=== PATIENT | female | born 1975 | race Caucasian/White ===

== ENCOUNTER → 2017-10-06 | Outpatient (CLI) | payer BC ==
--- NOTE | 2017-10-07 17:03 | WOMENS IMAGING REPORT ---
EXAM DESCRIPTION: BILAT SCREENING MAMMO W/CAD COMPLETED DATE/TIME: 10/06/2017 1:20 pm REASON FOR STUDY: SCREENING MAMMO Z12.31 ENCNTR SCREEN MAMMOGRAM FOR MALIGNANT NEOPLASM OF CHRIS COMPARISON: None. TECHNIQUE: Standard craniocaudal and mediolateral oblique views of each breast recorded using digita l acquisition. LIMITATIONS: Films greater than the 10 years old, not available FINDINGS: RIGHT BREAST MASSES: On the right side, at the 9 o'clock and 11 o'clock position, about 5 cm from the nipple there are 2 low-density well-circumscribed mammographic nodules without calcification or architectural dis tortion. These require further investigation with 90 mediolateral view, cone compression views, and ultrasound. CALCIFICATIONS: No new or suspicious calcifications. ARCHITECTURAL DISTORTION: None. DEVELOPING DENSITY: None. ASYMMETRY: None noted. OTHER: No other significant findings. LEFT BREAST MASSES: On the left side, in the far medial left breast 12 cm from the nipple 3 o'clock position low- density mammographic nodule is present without calcifications are tacks distortion. This requires fu rther investigation with cone compression views 90 mediolateral view and ultrasound. There is a 2nd , smaller mammographic nodule 5 cm from the nipple in the lower inner quadrant without calcification or architectural distortion. This requires further investigation with cone compression views and ult rasound CALCIFICATIONS: No new or suspicious calcifications. ARCHITECTURAL DISTORTION: None. DEVELOPING DENSITY: None. ASYMMETRY: None noted. OTHER: No other significant findings. Read with the assistance of CAD. .[facility] - R2 Cenova Version 1.3 .[facility] Imaging - R2 Cenova Version 1.3 .[facility] - R2 Cenova Version 2.4 .[facility] [place] - R2 Cenova Version 2.4 .[facility] - R2 Glass Bender Version 9.2 IMPRESSION: Bilateral breast nodules for which additional diagnostic mammograms and ultrasound are r ecommended for followup BREAST DENSITY: b. There are scattered areas of fibroglandular density. BIRAD: 0 Incomplete: Needs Additional Imaging Evaluation and/or prior Mammograms for Comparison. RECOMMENDATION: RECOMMENDED FOLLOW-UP: Bilateral diagnostic mammograms and breast ultrasound The patient will be contacted for additional imaging. COMMENT: The patient has been notified of the results by letter per MQSA requirements. Additional no tification policies are in place for contacting patient with suspicious or incomplete findings. Quality ID #[id number]: The [employer] recommends an annual screening mammogram for women aged 40 years or over. This facility utilizes a reminder system to ensure that all patients receive reminder letters, and/or direct phone calls for appointments. This includes reminders for routine scr eening mammograms, diagnostic mammograms, or other Breast Imaging Interventions when appropriate. Th is patient will be placed in the appropriate reminder system. The [employer] (ACR) has developed recommendations for screening MRI of the breast s in certain patient populations, to be used in conjunction with mammography. Breast MRI surveillanc e may be appropriate for women with more than 20% lifetime risk of developing breast cancer as deter mined by genetic testing, significant family history of the disease, or history of mantle radiation f or Hodgkins Disease. ACR Practice Guidelines 2008. TECHNICAL DOCUMENTATION: FINDING NUMBER: (1) ASSESSMENT: (1) JOB ID: [id number] [employer]- All Rights Reserved
== END ==
LOC: WI 12:36
PROVIDERS: ATTEND Internal Medicine Geriatric Medicine
DX: Z12.31 Encounter for screening mammogram for malignant neoplasm of breast (principal); N63.24 Unspecified lump in the left breast, lower inner quadrant; N63.10 Unspecified lump in the right breast, unspecified quadrant
CPT/HCPCS: 77067; G0202

== ENCOUNTER → 2017-10-25 | Outpatient (CLI) | payer BC ==
--- NOTE | 2017-10-25 13:07 | WOMENS IMAGING REPORT ---
EXAM DESCRIPTION: BILAT DIAGNOSTIC MAMMO W/CAD; U/S BREAST UNILAT LIMITED COMPLETED DATE/TIME: 10/25/2017 9:48 am; 10/25/2017 10:38 am REASON FOR STUDY: UNSPECIFIED LUMP; N63.11 N63.24; BILATERAL U/S; N63.11; N63.24 N63.24 UNSPECIFIED LUMP IN THE LEFT BREAST, LOWER INNER QUAD N63.11 UNSPECIFIED LUMP IN THE RIGHT BREAST, UPPER OUTER HÉCTOR COMPARISON: 10/06/2017. TECHNIQUE: Additional true lateral and spot compression MLO and CC images of both breasts acquired. LIMITATIONS: None. FINDINGS: RIGHT BREAST MASSES: Masses in the upper-outer breast which are circumscribed with smooth margins. CALCIFICATIONS: No new or suspicious calcifications. ARCHITECTURAL DISTORTION: None. DEVELOPING DENSITY: None. ASYMMETRY: None noted. OTHER: No other significant findings. LEFT BREAST MASSES: Masses in the medial breast which are circumscribed with smooth margins. CALCIFICATIONS: No new or suspicious calcifications. ARCHITECTURAL DISTORTION: None. DEVELOPING DENSITY: None. ASYMMETRY: None noted. OTHER: No other significant findings. BREAST ULTRASOUND: TECHNIQUE: Static and dynamic grayscale images acquired of the right and left breast in the specific areas of clinical/mammographic concern. Selected color Doppler images recorded. ELASTOGRAPHY PERFORMED: No. LIMITATIONS: None. FINDINGS: MASS: In the right breast there is a 6 x 10 x 15 mm mass in the 10 o'clock location and a 5 x 12 mm m ass in the June 2010 o'clock location. In the left breast a there is a 5 x 9 x 11 mm mass in th e 10 o'clock location and a 5 x 8 mm mass in the 9 o'clock location. All of the masses in both breas ts are solid and well-circumscribed with smooth margins. Homogeneous echogenicity. Oriented paralle l to the skin. ELASTOGRAPHY CHARACTERISTICS: Not applicable. OTHER: No other significant finding. IMPRESSION: Well circumscribed masses in both breasts. Mammographic and sonographic appearance is m ost characteristic of fibroadenomas. No worrisome appearance. Since this is the patient's baseline study with no priors for comparison, would recommend a short-term interval followup to confirm stabil ity. BREAST DENSITY: b. There are scattered areas of fibroglandular density. BIRAD: 3 Probably benign finding. Initial short-interval follow-up suggested. RECOMMENDATION: RECOMMENDED FOLLOW UP: Birads 3: The patient will return in 6 months for follow-up silvia capone. SPECIFIC INTERVENTION/IMAGING/CONSULTATION RECOMMENDED:The patient will return for 6 month follow-up diagnostic mammography(tomosynthesis) and targeted breast ultrasound. COMMUNICATION:The imaging findings were not discussed with the patient. Her referring provider has be en notified of the findings. COMMENT: The patient has been notified of the results by letter per SA requirements. Additional no tification policies are in place for contacting patient with suspicious or incomplete findings. Quality ID #[id number]: The [employer] recommends an annual screening mammogram for women aged 40 years or over. This facility utilizes a reminder system to ensure that all patients receive reminder letters, and/or direct phone calls for appointments. This includes reminders for routine scr eening mammograms, diagnostic mammograms, or other Breast Imaging Interventions when appropriate. Th is patient will be placed in the appropriate reminder system. The [employer] (ACR) has developed recommendations for screening MRI of the breast s in certain patient populations, to be used in conjunction with mammography. Breast MRI surveillanc e may be appropriate for women with more than 20% lifetime risk of developing breast cancer as deter mined by genetic testing, significant family history of the disease, or history of mantle radiation f or Hodgkins Disease. ACR Practice Guidelines 2008. TECHNICAL DOCUMENTATION: FINDING NUMBER: (1) ASSESSMENT: (1) JOB ID: [id number] [employer]- All Rights Reserved
== END ==
LOC: WI 09:27
PROVIDERS: ATTEND Internal Medicine Geriatric Medicine
DX: N63.24 Unspecified lump in the left breast, lower inner quadrant (principal); N63.11 Unspecified lump in the right breast, upper outer quadrant
CPT/HCPCS: 76642; G0204; 77066

== ENCOUNTER → 2018-04-25 | Outpatient (CLI) | payer BC ==
--- NOTE | 2018-04-27 07:48 | WOMENS IMAGING REPORT ---
EXAM DESCRIPTION: BILAT DIAGNOSTIC MAMMO W/CAD; U/S BREAST UNILAT LIMITED COMPLETED DATE/TIME: 04/25/2018 8:18 am; 04/25/2018 9:03 am REASON FOR STUDY: INCONCLUSIVE FINDINGS ON DX; BILATERAL BREAST R92.8 R92.8 OTH ABN AND INCONCLUSIV E FINDINGS ON DX IMAGING OF CHRIS COMPARISON: Mammograms 10/06/2017, 10/25/2017 Breast ultrasound bilaterally 10/25/2017 TECHNIQUE: Standard craniocaudal and mediolateral oblique views of each breast recorded using digita l acquisition. Bilateral 90 mediolateral whole breast mammograms. Bilateral breast ultrasound was also performed LIMITATIONS: None. FINDINGS: RIGHT BREAST MASSES: 2 small mammographic nodules are present in the right breast upper outer quadrant unchanged CALCIFICATIONS: No new or suspicious calcifications. ARCHITECTURAL DISTORTION: None. DEVELOPING DENSITY: None. ASYMMETRY: None noted. OTHER: No other significant findings. LEFT BREAST MASSES: 2 nodules are present in the left breast upper inner quadrant, unchanged. CALCIFICATIONS: No new or suspicious calcifications. ARCHITECTURAL DISTORTION: None. DEVELOPING DENSITY: None. ASYMMETRY: None noted. OTHER: No other significant finding. Read with the assistance of CAD: .[facility] - R2 Cenova Version 1.3 .[facility] Imaging - R2 Cenova Version 1.3 .[facility] Imaging - R2 Cenova Version 2.4 .[facility] - R2 Cenova Version 2.4 .[facility] - R2 Lean Manager Version 9.2 Bilateral breast ultrasound: In the right breast upper outer quadrant, there are two nodules which are well-circumscribed and low- attenuation without worrisome acoustic absorption. These most likely represent small fibroadenomas a nd are stable compared to prior breast ultrasound exam on 10/25/2017. In the right breast 9 o'clock position, a 1.1 x 1.1 x 0.4 cm benign solid nodule is present. In the right breast 10 o'clock position, a 1.1 x 0.9 x 0.6 cm benign nodule is present. In the left breast upper inner quadrant, there are two nodules which are well-circumscribed and low-a ttenuation without worrisome acoustic absorption. This most likely represent small fibroadenomas and are stable compared to the prior breast ultrasound exam 10/25/2017. In the left breast 9 o'clock position, a 0.8 x 0.5 x 0.7 cm benign solid nodule is present In the left breast 10 o'clock position, a 1.1 x 0.9 x 0.5 cm benign solid nodule is present. IMPRESSION: No mammographic or sonographic evidence for malignancy bilaterally. BREAST DENSITY: b. There are scattered areas of fibroglandular density. BIRAD: 2 Benign findings. RECOMMENDATION: RECOMMENDED FOLLOW UP: Please continue yearly bilateral screening mammography in Apr SPECIFIC INTERVENTION/IMAGING/CONSULTATION RECOMMENDED:No additional intervention/ imaging/consultati on needed at this time. COMMUNICATION:Patient notified by letter COMMENT: The patient has been notified of the results by letter per SA requirements. Additional no tification policies are in place for contacting patient with suspicious or incomplete findings. Quality ID #225: The [employer] recommends an annual screening mammogram for women aged 40 years or over. This facility utilizes a reminder system to ensure that all patients receive reminder letters, and/or direct phone calls for appointments. This includes reminders for routine scr eening mammograms, diagnostic mammograms, or other Breast Imaging Interventions when appropriate. Th is patient will be placed in the appropriate reminder system. The [employer] (ACR) has developed recommendations for screening MRI of the breast s in certain patient populations, to be used in conjunction with mammography. Breast MRI surveillanc e may be appropriate for women with more than 20% lifetime risk of developing breast cancer as deter mined by genetic testing, significant family history of the disease, or history of mantle radiation f or Hodgkins Disease. ACR Practice Guidelines 2008. TECHNICAL DOCUMENTATION: FINDING NUMBER: (1) ASSESSMENT: (1) JOB ID: [id number] [employer]- All Rights Reserved Reading location - IP/workstation name: [facility]
--- NOTE | 2018-04-27 07:48 | WOMENS IMAGING REPORT ---
EXAM DESCRIPTION: BILAT DIAGNOSTIC MAMMO W/CAD; U/S BREAST UNILAT LIMITED COMPLETED DATE/TIME: 04/25/2018 8:18 am; 04/25/2018 9:03 am REASON FOR STUDY: INCONCLUSIVE FINDINGS ON DX; BILATERAL BREAST R92.8 R92.8 OTH ABN AND INCONCLUSIV E FINDINGS ON DX IMAGING OF CHRIS COMPARISON: Mammograms 10/06/2017, 10/25/2017 Breast ultrasound bilaterally 10/25/2017 TECHNIQUE: Standard craniocaudal and mediolateral oblique views of each breast recorded using digita l acquisition. Bilateral 90 mediolateral whole breast mammograms. Bilateral breast ultrasound was also performed LIMITATIONS: None. FINDINGS: RIGHT BREAST MASSES: 2 small mammographic nodules are present in the right breast upper outer quadrant unchanged CALCIFICATIONS: No new or suspicious calcifications. ARCHITECTURAL DISTORTION: None. DEVELOPING DENSITY: None. ASYMMETRY: None noted. OTHER: No other significant findings. LEFT BREAST MASSES: 2 nodules are present in the left breast upper inner quadrant, unchanged. CALCIFICATIONS: No new or suspicious calcifications. ARCHITECTURAL DISTORTION: None. DEVELOPING DENSITY: None. ASYMMETRY: None noted. OTHER: No other significant finding. Read with the assistance of CAD: .[facility] - R2 Cenova Version 1.3 .[facility] Imaging - R2 Cenova Version 1.3 .[facility] Imaging - R2 Cenova Version 2.4 .[facility] - R2 Cenova Version 2.4 .[facility] - R2 Academic Advisement Director Version 9.2 Bilateral breast ultrasound: In the right breast upper outer quadrant, there are two nodules which are well-circumscribed and low- attenuation without worrisome acoustic absorption. These most likely represent small fibroadenomas a nd are stable compared to prior breast ultrasound exam on 10/25/2017. In the right breast 9 o'clock position, a 1.1 x 1.1 x 0.4 cm benign solid nodule is present. In the right breast 10 o'clock position, a 1.1 x 0.9 x 0.6 cm benign nodule is present. In the left breast upper inner quadrant, there are two nodules which are well-circumscribed and low-a ttenuation without worrisome acoustic absorption. This most likely represent small fibroadenomas and are stable compared to the prior breast ultrasound exam 10/25/2017. In the left breast 9 o'clock position, a 0.8 x 0.5 x 0.7 cm benign solid nodule is present In the left breast 10 o'clock position, a 1.1 x 0.9 x 0.5 cm benign solid nodule is present. IMPRESSION: No mammographic or sonographic evidence for malignancy bilaterally. BREAST DENSITY: b. There are scattered areas of fibroglandular density. BIRAD: 2 Benign findings. RECOMMENDATION: RECOMMENDED FOLLOW UP: Please continue yearly bilateral screening mammography in Apr SPECIFIC INTERVENTION/IMAGING/CONSULTATION RECOMMENDED:No additional intervention/ imaging/consultati on needed at this time. COMMUNICATION:Patient notified by letter COMMENT: The patient has been notified of the results by letter per SA requirements. Additional no tification policies are in place for contacting patient with suspicious or incomplete findings. Quality ID #[id number]: The [employer] recommends an annual screening mammogram for women aged 40 years or over. This facility utilizes a reminder system to ensure that all patients receive reminder letters, and/or direct phone calls for appointments. This includes reminders for routine scr eening mammograms, diagnostic mammograms, or other Breast Imaging Interventions when appropriate. Th is patient will be placed in the appropriate reminder system. The [employer] (ACR) has developed recommendations for screening MRI of the breast s in certain patient populations, to be used in conjunction with mammography. Breast MRI surveillanc e may be appropriate for women with more than 20% lifetime risk of developing breast cancer as deter mined by genetic testing, significant family history of the disease, or history of mantle radiation f or Hodgkins Disease. ACR Practice Guidelines 2008. TECHNICAL DOCUMENTATION: FINDING NUMBER: (1) ASSESSMENT: (1) JOB ID: [id number] [employer]- All Rights Reserved Reading location - IP/workstation name: [facility]
--- NOTE | 2018-04-27 07:48 | WOMENS IMAGING REPORT ---
EXAM DESCRIPTION: BILAT DIAGNOSTIC MAMMO W/CAD; U/S BREAST UNILAT LIMITED COMPLETED DATE/TIME: 04/25/2018 8:18 am; 04/25/2018 9:03 am REASON FOR STUDY: INCONCLUSIVE FINDINGS ON DX; BILATERAL BREAST R92.8 R92.8 OTH ABN AND INCONCLUSIV E FINDINGS ON DX IMAGING OF CHRIS COMPARISON: Mammograms 10/06/2017, 10/25/2017 Breast ultrasound bilaterally 10/25/2017 TECHNIQUE: Standard craniocaudal and mediolateral oblique views of each breast recorded using digita l acquisition. Bilateral 90 mediolateral whole breast mammograms. Bilateral breast ultrasound was also performed LIMITATIONS: None. FINDINGS: RIGHT BREAST MASSES: 2 small mammographic nodules are present in the right breast upper outer quadrant unchanged CALCIFICATIONS: No new or suspicious calcifications. ARCHITECTURAL DISTORTION: None. DEVELOPING DENSITY: None. ASYMMETRY: None noted. OTHER: No other significant findings. LEFT BREAST MASSES: 2 nodules are present in the left breast upper inner quadrant, unchanged. CALCIFICATIONS: No new or suspicious calcifications. ARCHITECTURAL DISTORTION: None. DEVELOPING DENSITY: None. ASYMMETRY: None noted. OTHER: No other significant finding. Read with the assistance of CAD: .[facility] - R2 Cenova Version 1.3 .[facility] Imaging - R2 Cenova Version 1.3 .[facility] Imaging - R2 Cenova Version 2.4 .[facility] [place] - R2 Cenova Version 2.4 .[facility] - R2 Jump Roll Operator Version 9.2 Bilateral breast ultrasound: In the right breast upper outer quadrant, there are two nodules which are well-circumscribed and low- attenuation without worrisome acoustic absorption. These most likely represent small fibroadenomas a nd are stable compared to prior breast ultrasound exam on 10/25/2017. In the right breast 9 o'clock position, a 1.1 x 1.1 x 0.4 cm benign solid nodule is present. In the right breast 10 o'clock position, a 1.1 x 0.9 x 0.6 cm benign nodule is present. In the left breast upper inner quadrant, there are two nodules which are well-circumscribed and low-a ttenuation without worrisome acoustic absorption. This most likely represent small fibroadenomas and are stable compared to the prior breast ultrasound exam 10/25/2017. In the left breast 9 o'clock position, a 0.8 x 0.5 x 0.7 cm benign solid nodule is present In the left breast 10 o'clock position, a 1.1 x 0.9 x 0.5 cm benign solid nodule is present. IMPRESSION: No mammographic or sonographic evidence for malignancy bilaterally. BREAST DENSITY: b. There are scattered areas of fibroglandular density. BIRAD: 2 Benign findings. RECOMMENDATION: RECOMMENDED FOLLOW UP: Please continue yearly bilateral screening mammography in Apr SPECIFIC INTERVENTION/IMAGING/CONSULTATION RECOMMENDED:No additional intervention/ imaging/consultati on needed at this time. COMMUNICATION:Patient notified by letter COMMENT: The patient has been notified of the results by letter per SA requirements. Additional no tification policies are in place for contacting patient with suspicious or incomplete findings. Quality ID #225: The [employer] recommends an annual screening mammogram for women aged 40 years or over. This facility utilizes a reminder system to ensure that all patients receive reminder letters, and/or direct phone calls for appointments. This includes reminders for routine scr eening mammograms, diagnostic mammograms, or other Breast Imaging Interventions when appropriate. Th is patient will be placed in the appropriate reminder system. The [employer] (ACR) has developed recommendations for screening MRI of the breast s in certain patient populations, to be used in conjunction with mammography. Breast MRI surveillanc e may be appropriate for women with more than 20% lifetime risk of developing breast cancer as deter mined by genetic testing, significant family history of the disease, or history of mantle radiation f or Hodgkins Disease. ACR Practice Guidelines 2008. TECHNICAL DOCUMENTATION: FINDING NUMBER: (1) ASSESSMENT: (1) JOB ID: [id number] [employer]- All Rights Reserved Reading location - IP/workstation name: [facility]
== END ==
LOC: WI 07:58
PROVIDERS: ATTEND Internal Medicine Geriatric Medicine
DX: N63.21 Unspecified lump in the left breast, upper outer quadrant (principal)
CPT/HCPCS: 76642; 77066

== ENCOUNTER → 2018-07-27 | Outpatient (CLI) | payer BC ==
--- NOTE | 2018-07-27 11:58 | RADIOLOGY REPORT (SQ) ---
EXAM DESCRIPTION: VENOUS UNILATERAL LOWER COMPLETED DATE/TIME: 07/27/2018 11:47 am REASON FOR STUDY: HX OF DVT, LORI Z86.718 PERSONAL HISTORY OF OTHER VENOUS THROMBOSIS AND EMBO COMPARISON: April 2016 TECHNIQUE: Dynamic and static muro scale and color images acquired of the right leg venous system. S elected spectral images acquired with additional compression and augmentation maneuvers. The contrala teral common femoral vein and saphenofemoral junction were also imaged. Images stored on PACS. LIMITATIONS: None. FINDINGS: COMMON FEMORAL: The common femoral vein is partially compressible in the appearance would suggest chronic deep venous thrombosis. No venous occlusion is identified. FEMORAL: Normal compression and augmentation. No visualized echogenic material on muro scale. No defe cts on color images. POPLITEAL: Normal compression, augmentation. No visualized echogenic material on muro scale. No defec ts on color images. CALF VESSELS: Normal compression, augmentation. No visualized echogenic material on muro scale. No de fects on color images. GSV and SSV: Normal compression, augmentation. No visualized echogenic material on muro scale. No def ects on color images. ANY DEEP VENOUS INSUFFICIENCY: Not evaluated. ANY EVIDENCE OF POPLITEAL CYST: No. OTHER: No other significant finding. CONTRALATERAL COMMON FEMORAL VEIN AND SAPHENOFEMORAL JUNCTION: Normal phasicity, compression and augmentation. No visualized echogenic material on muro scale. No de fects on color images. 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 N o evidence for acute DVT or SVT is identified in the right lower extremity TECHNICAL DOCUMENTATION: JOB ID: [id number] [employer]- All Rights Reserved Reading location - IP/workstation name: [email or web address]
== END ==
LOC: SP 09:21
PROVIDERS: ATTEND Internal Medicine Geriatric Medicine
DX: I82.511 Chronic embolism and thrombosis of right femoral vein (principal)
CPT/HCPCS: 93971

== ENCOUNTER → 2018-11-06 | Outpatient (CLI) | payer BC ==
--- NOTE | 2018-11-07 09:45 | XCELERA REPORT ---
[address] [place] [facility] [address] Lower Extremity Venous Evaluation Procedure: Color flow and duplex imaging of the veins of the right lower extremity as well as the left Common Femoral vein. Right Sided Venous Evaluation Normal vessel filling wall to wall, compression and augmentation as well as Colour flow down to the infrageniculate veins. Left Sided Venous Evaluation The left common femoral vein is fully compressible. Spontaneous and phasic flow is present in the left common femoral vein. Interpretation Summary No duplex evidence of DVT or obstruction in the right lower extremity nor in the left Common Femoral vein. Name: OVI BARTLETT Age: 43 yrs Gender: Female : 1975 Patient Status: Outpatient Patient Location: [facility] Study Date: 11/06/2018 05:23 PM Reason For Study: RLE PAIN Ordering Physician: SHAGGY VALDES Performed By: Nilam Valdez : SHAGGY VALDES > Neptali Gardiner
== END ==
LOC: RAD 16:33
PROVIDERS: ATTEND Internal Medicine Geriatric Medicine
DX: M79.604 Pain in right leg (principal)
CPT/HCPCS: 93971

== ENCOUNTER → 2019-09-03 | Outpatient (CLI) | payer BC ==
--- NOTE | 2019-09-03 12:52 | WOMENS IMAGING REPORT ---
EXAM DESCRIPTION: BILAT SCREENING MAMMO W/CAD COMPLETED DATE/TIME: 09/03/2019 11:04 am REASON FOR STUDY: Z12.31 ENCOUNTER FOR SCREENING MAMMOGRAM FOR MALIGNANT NEOPLASM OF BREAST Z12.31 ENCNTR SCREEN MAMMOGRAM FOR MALIGNANT NEOPLASM OF CHRIS COMPARISON: 04/25/2018 and 10/06/2017. EXAM PARAMETERS: Standard craniocaudal and mediolateral oblique views of each breast recorded using digital acquisition. Read with the assistance of CAD. .[facility] - [employer] Version 9.2 LIMITATIONS: None. FINDINGS: Findings present which are benign by mammographic criteria. No suspicious masses, calcifi cations or architectural distortion. Pertinent benign findings: Stable circumscribed masses in both breasts. Benign mammographic findings may include one or more of the following: Smooth masses, popcorn/rim/co arse calcifications, asymmetries, post-procedure changes, and lesions with long-standing stability. IMPRESSION: BENIGN MAMMOGRAPHIC FINDINGS. BIRADS 2 BREAST DENSITY: b. There are scattered areas of fibroglandular density. BIRAD: ASSESSMENT: 2 BENIGN FINDING(S) RECOMMENDATION: ROUTINE SCREENING COMMENT: The patient has been notified of the results by letter per [place] requirements. Additional no tification policies are in place for contacting patient with suspicious or incomplete findings. Quality ID #225: The [employer] recommends an annual screening mammogram for women aged 40 years or over. This facility utilizes a reminder system to ensure that all patients receive reminder letters, and/or direct phone calls for appointments. This includes reminders for routine scr eening mammograms, diagnostic mammograms, or other Breast Imaging Interventions when appropriate. Th is patient will be placed in the appropriate reminder system. TECHNICAL DOCUMENTATION: FINDING NUMBER: (1) ASSESSMENT: (1) JOB ID: [id number] [employer]- All Rights Reserved Reading location - IP/workstation name: [email or web address]
== END ==
LOC: WI 10:46
PROVIDERS: ATTEND Internal Medicine Geriatric Medicine
DX: Z12.31 Encounter for screening mammogram for malignant neoplasm of breast (principal)
CPT/HCPCS: 77067

== ENCOUNTER → 2020-09-17 | Outpatient (CLI) | payer BC ==
--- NOTE | 2020-09-17 11:40 | WOMENS IMAGING REPORT ---
EXAM DESCRIPTION: BILAT SCREENING MAMMO W/CAD IMAGES COMPLETED DATE/TIME: 09/17/2020 10:19 am REASON FOR STUDY: ENCNTR SCREEN MAMMOGRAM FOR MALIGNANT NEOPLASM OF BREAST Z12.31 ENCNTR SCREEN DA MOGRAM FOR MALIGNANT NEOPLASM OF CHRIS COMPARISON: Priors back to 2017 EXAM PARAMETERS: Standard craniocaudal and mediolateral oblique views of each breast recorded using digital acquisition. Read with the assistance of CAD. .[facility] - [employer] Version 9.2 LIMITATIONS: None. FINDINGS: Findings present which are benign by mammographic criteria. No suspicious masses, calcifi cations or architectural distortion. Pertinent benign findings: Fibroadenomas. Benign mammographic findings may include one or more of the following: Smooth masses, popcorn/rim/co arse calcifications, asymmetries, post-procedure changes, and lesions with long-standing stability. IMPRESSION: BENIGN MAMMOGRAPHIC FINDINGS. BIRADS 2 BREAST DENSITY: b. There are scattered areas of fibroglandular density. BIRAD: ASSESSMENT: 2 BENIGN FINDING(S) RECOMMENDATION: ROUTINE SCREENING COMMENT: The patient has been notified of the results by letter per MQSA requirements. Additional no tification policies are in place for contacting patient with suspicious or incomplete findings. Quality ID #225: The [employer] recommends an annual screening mammogram for women aged 40 years or over. This facility utilizes a reminder system to ensure that all patients receive reminder letters, and/or direct phone calls for appointments. This includes reminders for routine scr eening mammograms, diagnostic mammograms, or other Breast Imaging Interventions when appropriate. Th is patient will be placed in the appropriate reminder system. TECHNICAL DOCUMENTATION: FINDING NUMBER: (1) ASSESSMENT: (1) JOB ID: [id number] [employer]- All Rights Reserved Reading location - IP/workstation name: [email or web address]
== END ==
LOC: WI 10:01
PROVIDERS: ATTEND Internal Medicine Geriatric Medicine
DX: Z12.31 Encounter for screening mammogram for malignant neoplasm of breast (principal)
CPT/HCPCS: 77067

== ENCOUNTER 2020-11-06 05:23 | Day surgery (SDC) | payer BC, OTHER ==
[2020-11-03 10:55] LABS: HEMATOCRIT 37.2 % (36.0-47.0); HEMOGLOBIN 12.8 g/dL (12.0-15.5); MEAN CORPUSCULAR HEMOGLOBIN 29.5 pg (27.0-33.4); MEAN CORPUSCULAR HGB CONC 34.5 g/dL (32.0-36.0); MEAN CORPUSCULAR VOLUME 86 fl (80-97); PLATELET COUNT 302 10^3/uL (150-450); RED BLOOD COUNT 4.35 10^6/uL (3.72-5.28); RED CELL DISTRIBUTION WIDTH 13.5 % (11.5-14.0); WHITE BLOOD COUNT 5.8 10^3/uL (4.0-10.5)
[2020-11-03 11:08] LABS: APPEARANCE,URINE CLEAR; BILIRUBIN,URINE NEGATIVE (NEGATIVE); COLOR,URINE YELLOW; GLUCOSE, URINE NEGATIVE (NEGATIVE); KETONES,URINE NEGATIVE (NEGATIVE); LEUKOCYTE ESTERASE,URINE NEGATIVE (NEGATIVE); NITRITE,URINE NEGATIVE (NEGATIVE); PROTEIN,URINE NEGATIVE (NEGATIVE); URINE SPECIFIC GRAVITY 1.008; UROBILINOGEN,URINE NEGATIVE mg/dL (<2.0)
[2020-11-03 11:33] LABS: ALBUMIN 4.2 g/dL (3.5-5.0); ALKALINE PHOSPHATASE 154 U/L (38-126); ANION GAP 9 (5-19); ASPARTATE AMINO TRANSFERASE 20 U/L (14-36); BILIRUBIN,DIRECT 0.4 mg/dL (0.0-0.4); BILIRUBIN,TOTAL 0.4 mg/dL (0.2-1.3); BLOOD UREA NITROGEN 10 mg/dL (7-20); CALCIUM 9.7 mg/dL (8.4-10.2); CARBON DIOXIDE 25 mmol/L (22-30); CHLORIDE 97 mmol/L (98-107); GLUCOSE 111 mg/dL (75-110); POTASSIUM 4.5 mmol/L (3.6-5.0)
[~2020-11-06 05:23] MED LIST: CEFAZOLIN 1 GM/D5W RTU 1 GM/50 ML RTUPB IV PRN; LACTATED RINGERS 1000 ML IV PRN; LIDOCAINE 0.5% INJ-PF (5 MG/ML) 50 ML SDV SUBCUT PRN; NORMAL SALINE 1000 ML (RENAL PATIENTS) IV PRN
[2020-11-06] MEDS ORDERED: CEFAZOLIN 1 GM/D5W RTU 1 GM/50 ML RTUPB IV ONE (05:29)
[2020-11-06] MEDS ORDERED: FENTANYL CITRATE INJ/PF 250 MCG/5 ML AMPULE ONE (06:49)
[2020-11-06] MEDS ORDERED: MIDAZOLAM 2 MG/2 ML INJ ONE (06:49)
[2020-11-06] MEDS ORDERED: SCOPOLAMINE HYDROBROMIDE 1.5 MG PATCH.TD72 ONE (06:50)
[2020-11-06] MEDS ORDERED: PROPOFOL INJ 200 MG/20 ML VIAL IV ONE (06:50)
[2020-11-06] MEDS ORDERED: SUGAMMADEX SODIUM 200 MG/2 ML SDV IV ONE (06:50)
[2020-11-06] MEDS ORDERED: EPHEDRINE SULFATE INJ 50 MG/1 ML AMPULE ONE (06:50)
--- NOTE | 2020-11-06 07:34 | RADIOLOGY REPORT (SQ) ---
EXAM DESCRIPTION: XR CHEST 1 VIEW COMPLETED DATE/TME: 11/06/2020 06:26 CLINICAL HISTORY: 45 years Female, preop stat for proc. COMPARISON: 08/08/15 NUMBER OF VIEWS/TECHNIQUE: 1/AP FINDINGS: Increased lung volume, clear parenchyma, normal cardiac silhouette, and intact bony thorax. IMPRESSION: No acute cardiopulmonary findings.
--- NOTE | 2020-11-06 08:33 | EKG REPORT ---
SEVERITY:- NORMAL ECG - SINUS RHYTHM : Confirmed by: Anabell Sparrow MD 06-Nov-2020 08:33:07
[2020-11-06] MEDS ORDERED: PROMETHAZINE HCL INJ 25 MG/1 ML VIAL IV PRN ×3 (09:20→09:31)
[2020-11-06] MEDS ORDERED: SIMETHICONE 80 MG TAB.CHEW PO PRN (09:20)
[2020-11-06] MEDS ORDERED: MORPHINE SULFATE 10 MG/ML INJ IV PRN ×2 (09:20→09:31)
[2020-11-06] MEDS ORDERED: OXYCODONE-ACETAMINOPHEN 5-325 MG TABLET PO PRN (09:20)
[2020-11-06] MEDS ORDERED: ACETAMINOPHEN 1,000 MG/100 ML RTUPB IV PRN (09:20)
[2020-11-06] MEDS ORDERED: ACETAMINOPHEN 325 MG TABLET PO PRN (09:20)
--- NOTE | 2020-11-06 09:29 | Operative Report ---
Operative Report DATE OF SURGERY: 11/06/20 PREOPERATIVE DIAGNOSIS: abnormal uterine bleeding, symptomatic leiomyoma, pelvic pain POSTOPERATIVE DIAGNOSIS: same OPERATION: Robotic Assisted Total Laparoscopic Hysterectomy with bilateral salpingectomy SURGEON: LORENA GUO 1ST SEARCH COORDINATOR: SATINDER ONTIVEROS 2ND Customer Service Cashier: ROCK HARVEY ANESTHESIA: GA TISSUE REMOVED OR ALTERED: uterus, cervix and bilateral fallopian tube COMPLICATIONS: none ESTIMATED BLOOD LOSS: 200 cc INTRAOPERATIVE FINDINGS: very stenotic cervix, 8 week sized uterus with a 3 cm leiomyoma on anterior aspect of uterine body PROCEDURE: Patient was taken to the operating room prepared and draped in normal sterile fashion in dorsolithotomy position. Under sterile conditions a Chinchilla catheter was placed to gravity. Speculum was placed into the vagina and the cervix was gr asped on the anterior lip with a single-tooth tenaculum. The cervix was then dilated with difficulty to accommodate a medium V care uterine manipulator. Manipulator was placed gloves were changed and attention was turned to the upper portion of the case. A 2-1/2 cm umbilical skin incision was made 11 blade and this was carried through to the underlying layer of fascia with the same 11 blade. It was grasped to Pedro Pablo's acted with Rueda's. New cavity was entered bluntly. A GelPort was placed in a normal fashion the camera port and air seal in the appropriate locations. San was then inflated with approximately 2 L of CO2 gas. The camera was then introduced into the peritoneal cavity through the camera port and the patient was placed in steep Trendelenburg. The above findings were noted and it was noted that the uterine manipulator did perforated the left uterine body however hemostasis was good. Under direct visualization two 5 mm ports were placed approximately 10 cm on either side of the umbilicus. The robot was then docked with the vessel sealer placed on the patient's left and the monopolar scissors placed placed on the patient's right. I then unscrubbed and set at the robotic console beginning with the left adnexa fallopian tube was transected from the uterus using the vessel sealer and monopolar scissors as needed. The fallopian tube was then removed through the assistance port. The ovarian ligament was then transected using the vessel sealer. The uterine artery was skeletonized using blunt dissection and ligated using the vessel sealer down to the level of the external cervical os. The bladder flap was then begun using monopolar scissors and blunt dissection over the V care cup noted through the mucosa. Attention was then turned to the right adnexa where the fallopian tube was transected in a similar fashion. The utero- ovarian ligament was transected using the vessel sealer. The Uterine artery was then transected using the vessel sealer and skeletonized using blunt dissection. The vessel sealer was again used to completely transect the uterine artery down to the level of the external cervical os. The bladder flap was completed using similar sharp and blunt dissection. Once the bladder was felt to be adequately away from the lower uterine segment, the colpotomy was begun on the anterior aspect of the cervix following the outline of the V care cup mucosa. The cup was followed in a circumferential fashion completely around the cervix estimate was completely freed. The specimen was then removed through the vaginal defect. The instruments were then changed to a [employer] needle yard truck driver and pro-grasp. AV lock needle was introduced through the assistance port. The lock needle was used to close the vaginal cuff and hemostasis. The needle was then removed through the assistance port. The peritoneal cavity was carefully inspected the ureters were noted to both be peristalsing and there was no signs of hydroureter. The robot was then undocked. The fascia was closed at the umbilical skin incision seen 0 Vicryl 3 skin incisions were closed using 4-0 Vicryl. Sponge lap and needle counts were correct x2 and the patient was taken to recovery in stable condit ion.
[2020-11-06] MEDS ORDERED: DIPHENHYDRAMINE HCL 50 MG/ML VIAL IV PRN (09:31)
[2020-11-06] MEDS ORDERED: MEPERIDINE HCL/PF INJ 25 MG/1 ML DISP.SYRIN IV PRN (09:31)
[2020-11-06] MEDS ORDERED: ONDANSETRON HCL INJ/PF 4 MG/2 ML SDV IV PRN (09:31)
[2020-11-06] MEDS ORDERED: FENTANYL CITRATE INJ/PF 100 MCG/2 ML AMPUL IV PRN ×3 (09:31)
[2020-11-06] MEDS ORDERED: LIDOCAINE 2% INJ-PF (20 MG/ML) 2 ML AMPUL ONE (10:45)
[2020-11-06] MEDS ORDERED: DIPHENHYDRAMINE HCL 50 MG/ML VIAL ONE (10:45)
[2020-11-06] MEDS ORDERED: PHENYLEPHRINE HCL INJ/PF 10 MG/1 ML SDV ONE (10:45)
[2020-11-06] MEDS ORDERED: KETOROLAC TROMETHAMINE 60 MG/2 ML SDV ONE (10:45)
[2020-11-06] MEDS ORDERED: DEXAMETHASONE SOD PHOSPHATE INJ 4 MG/1 ML VIAL ONE (10:45)
[2020-11-06] MEDS ORDERED: ROCURONIUM BROMIDE INJ 50 MG/5 ML VIAL IV ONE ×2 (10:45→10:47)
[2020-11-06] MEDS ORDERED: SUCCINYLCHOLINE CHLORIDE INJ 200 MG/10 ML VIAL ONE ×2 (10:45→10:47)
[2020-11-06] MEDS ORDERED: GLYCOPYRROLATE 1 MG/5 ML VIAL ONE (10:47)
[2020-11-06] MEDS ORDERED: NEOSTIGMINE METHYLSULFATE 10 MG/10 ML VIAL ONE (10:47)
[2020-11-06] MEDS: OXYCODONE-ACETAMINOPHEN 5-325 MG TABLET PO PRN ×2 (11:31→16:52)
[2020-11-06] MEDS: DOCUSATE SODIUM 100 MG CAPSULE PO SCH ×2 (11:33→17:00)
[2020-11-06] MEDS: KETOROLAC TROMETHAMINE INJ/PF 30 MG/1 ML SDV IV SCH ×2 (14:00→21:19)
[2020-11-06] MEDS ORDERED: HYOSCYAMINE SULFATE 0.125 MG TABLET PO ONE (16:30)
[2020-11-06] MEDS: RINGERS SOLUTION,LACTATED 1,000 ML IV PRN (16:41)
[2020-11-07 03:57] VITALS: BP 124/66
[2020-11-07] MEDS: KETOROLAC TROMETHAMINE INJ/PF 30 MG/1 ML SDV IV SCH (05:57)
[2020-11-07] MEDS: RINGERS SOLUTION,LACTATED 1,000 ML IV PRN (06:00)
[2020-11-07 07:29] LABS: HEMATOCRIT 32.7 % (36.0-47.0); HEMOGLOBIN 11.6 g/dL (12.0-15.5); MEAN CORPUSCULAR HEMOGLOBIN 30.6 pg (27.0-33.4); MEAN CORPUSCULAR HGB CONC 35.4 g/dL (32.0-36.0); MEAN CORPUSCULAR VOLUME 86 fl (80-97); PLATELET COUNT 274 10^3/uL (150-450); RED BLOOD COUNT 3.79 10^6/uL (3.72-5.28); RED CELL DISTRIBUTION WIDTH 13.4 % (11.5-14.0); WHITE BLOOD COUNT 9.4 10^3/uL (4.0-10.5)
--- NOTE | 2020-11-07 07:40 | PDOC DISCHARGE SUMMARY ---
Impression - Admit/DC Date/PCP Admission Date/Primary Care Provider: SHAGGY VALDES Discharge Date: 11/07/20 - Discharge Diagnosis (1) Abnormal uterine bleeding Is this a current diagnosis for this admission?: Yes (2) Leiomyoma of body of uterus Is this a current diagnosis for this admission?: Yes (3) Pelvic pain Is this a current diagnosis for this admission?: Yes - Assessment Summary: patient underwent a RATLH w/ Bilateral salpingectomy yesterday. she has had an unremarkable post operative course. she is voiding and passing flatus tolerating a regular diet and ambulating well. she is ready for discharge home - Additional Information Resuscitation Status: Full Code Discharge Diet: As Tolerated Discharge Activity: Balance Activity w/Rest, No Driving, No Lifting Over 10 Pounds, No Lifting/Push/Pulling, Pelvic Rest, No tub bath, Walk Frequently Referrals: LORENA GUO MD [ACTIVE STAFF] - 11/19/20 10:30 am (CALL THE OFFICE OF ANY QUESTIONS AND CONCERNS.) SHAGGY VALDES MD [Primary Care Provider] - Prescriptions: Oxycodone HCl/Acetaminophen [Percocet 5-325 mg Tablet] 1 tab PO Q4HP PRN #30 tablet PRN Reason: Docusate Sodium [Colace 100 mg Capsule] 100 mg PO BID #60 capsule Ibuprofen [Motrin 800 mg Tablet] 800 mg PO Q6 #60 tablet Home Medications: Aripiprazole [Abilify 15 mg Tablet] 15 mg PO BID 09/22/15 Bupropion HCl [Wellbutrin] 100 mg PO DAILY 09/22/15 Citalopram Hydrobromide [Celexa 40 mg Tablet] 1 tab PO DAILY 09/22/15 Haloperidol [Haldol 5 mg Tablet] 5 mg PO BID 09/22/15 Metformin HCl 500 mg PO BID 09/22/15 Topiramate [Topamax] 200 mg PO BID 09/22/15 Benztropine Mesylate [Cogentin 1 mg Tablet] 1 tab PO DAILY 11/03/20 Liraglutide [Saxenda] 3 mg SQ DAILY 11/03/20 Oxcarbazepine [Trileptal] 600 mg PO BID 11/03/20 Docusate Sodium [Colace 100 mg Capsule] 100 mg PO BID #60 capsule 11/07/20 Ibuprofen [Motrin 800 mg Tablet] 800 mg PO Q6 #60 tablet 11/07/20 Oxycodone HCl/Acetaminophen [Percocet 5-325 mg Tablet] 1 tab PO Q4HP PRN #30 tablet 11/07/20 History of Present Illiness History of Present Illness: OVI BARTLETT is a 45 year old female Physical Exam - Physical Exam Vital Signs: Temp Pulse Resp BP Pulse Ox 98.2 F 78 16 124/66 98 11/07/20 03:54 11/07/20 03:54 11/07/20 03:54 11/07/20 03:54 11/07/20 03:54 Intake & Output 11/06/20 11/07/20 11/08/20 06:59 06:59 06:59 Intake Total 3950 Output Total 1230 Balance 2720 Weight 109.77 kg 106.8 kg Results Laboratory Results: WBC 9.4 10^3/uL (4.0-10.5) 11/07/20 07:15 RBC 3.79 10^6/uL (3.72-5.28) 11/07/20 07:15 Hgb 11.6 g/dL (12.0-15.5) L 11/07/20 07:15 Hct 32.7 % (36.0-47.0) L 11/07/20 07:15 MCV 86 fl (80-97) 11/07/20 07:15 MCH 30.6 pg (27.0-33.4) 11/07/20 07:15 MCHC 35.4 g/dL (32.0-36.0) 11/07/20 07:15 RDW 13.4 % (11.5-14.0) 11/07/20 07:15 Plt Count 274 10^3/uL (150-450) 11/07/20 07:15 Sodium 130.7 mmol/L (137-145) L 11/03/20 10:07 Potassium 4.5 mmol/L (3.6-5.0) 11/03/20 10:07 Chloride 97 mmol/L (98-107) L 11/03/20 10:07 Carbon Dioxide 25 mmol/L (22-30) 11/03/20 10:07 Anion Gap 9 (5-19) 11/03/20 10:07 BUN 10 mg/dL (7-20) 11/03/20 10:07 Creatinine 0.67 mg/dL (0.52-1.25) 11/03/20 10:07 Est GFR ( Amer) > 60 (>60) 11/03/20 10:07 Est GFR (MDRD) Non-Af > 60 (>60) 11/03/20 10:07 Glucose 111 mg/dL (75-110) H 11/03/20 10:07 POC Glucose 97 mg/dL (70-110) 11/06/20 06:02 Calcium 9.7 mg/dL (8.4-10.2) 11/03/20 10:07 Total Bilirubin 0.4 mg/dL (0.2-1.3) 11/03/20 10:07 Direct Bilirubin 0.4 mg/dL (0.0-0.4) 11/03/20 10:07 Neonat Total Bilirubin Not Reportable 11/03/20 10:07 Neonat Direct Bilirubin Not Reportable 11/03/20 10:07 Neonat Indirect Bili Not Reportable 11/03/20 10:07 AST 20 U/L (14-36) 11/03/20 10:07 ALT 18 U/L (<35) 11/03/20 10:07 Alkaline Phosphatase 154 U/L (38-126) H 11/03/20 10:07 Total Protein 7.0 g/dL (6.3-8.2) 11/03/20 10:07 Albumin 4.2 g/dL (3.5-5.0) 11/03/20 10:07 Urine Color YELLOW 11/03/20 10:08 Urine Appearance CLEAR 11/03/20 10:08 Urine pH 7.0 (5.0-9.0) 11/03/20 10:08 Ur Specific Burton 1.008 11/03/20 10:08 Urine Protein NEGATIVE mg/dL (NEGATIVE) 11/03/20 10:08 Urine Glucose (UA) NEGATIVE mg/dL (NEGATIVE) 11/03/20 10:08 Urine Ketones NEGATIVE mg/dL (NEGATIVE) 11/03/20 10:08 Urine Blood NEGATIVE (NEGATIVE) 11/03/20 10:08 Urine Nitrite NEGATIVE (NEGATIVE) 11/03/20 10:08 Urine Bilirubin NEGATIVE (NEGATIVE) 11/03/20 10:08 Urine Urobilinogen NEGATIVE mg/dL (<2.0) 11/03/20 10:08 Ur Leukocyte Esterase NEGATIVE (NEGATIVE) 11/03/20 10:08 Urine WBC (Auto) 1 /HPF 11/03/20 10:08 Urine RBC (Auto) 0 /HPF 11/03/20 10:08 Urine Bacteria (Auto) TRACE /HPF 11/03/20 10:08 Squamous Epi Cells Auto 1 /HPF 11/03/20 10:08 Urine Mucus (Auto) RARE /LPF 11/03/20 10:08 Urine Ascorbic Acid NEGATIVE (NEGATIVE) 11/03/20 10:08 Urine HCG, Qual NEGATIVE (NEGATIVE) 11/06/20 05:30 COVID-19 Source See comment 11/03/20 10:00 COVID-19 ([facility]) Not Detected (Not Detect) 11/03/20 10:00 Blood Type A POSITIVE 11/03/20 10:07 Antibody Screen NEGATIVE 11/03/20 10:07 Impressions: Chest X-Ray 11/06/20 00:00 IMPRESSION: No acute cardiopulmonary findings. Stroke Is this a Stroke Patient?: No Acute Heart Failure Is this a Heart Failure Patient?: No
[2020-11-07] MEDS ORDERED: IBUPROFEN 800 MG TABLET PO SCH (12:00)
== END 2020-11-07 08:45 | disposition home or self-care (01) ==
LOC: OROUT 05:23 → 2N 10:17 → OROUT 11-07 08:45
PROVIDERS: ATTEND Obstetrics & Gynecology
DX: N93.9 Abnormal uterine and vaginal bleeding, unspecified (principal); D25.9 Leiomyoma of uterus, unspecified; R10.2 Pelvic and perineal pain; N72 Inflammatory disease of cervix uteri; N87.9 Dysplasia of cervix uteri, unspecified; N83.8 Other noninflammatory disorders of ovary, fallopian tube and broad ligament; N88.2 Stricture and stenosis of cervix uteri; F25.1 Schizoaffective disorder, depressive type; Z20.822 Contact with and (suspected) exposure to COVID-19; Z01.812 Encounter for preprocedural laboratory examination; Z79.899 Other long term (current) drug therapy; Z79.84 Long term (current) use of oral hypoglycemic drugs; Z98.890 Other specified postprocedural states; E66.9 Obesity, unspecified; K21.9 Gastro-esophageal reflux disease without esophagitis; G47.33 Obstructive sleep apnea (adult) (pediatric); Z86.718 Personal history of other venous thrombosis and embolism
CPT/HCPCS: 58571; 86900; 86901; 36415 ×2; 86850; 82962; 85027 ×2; 81025; 80053; 81001; 88307 ×2; 71045; 93005; 94799; 93010; 00840; C1758; A4649; U0003; J2250; J0690; J3490 ×5; J1100; J1200; J1885 ×3; J3010; J2710; J2370; J0330; J7120 ×2; J2704; C9803; 840; 87635